=== PATIENT | male | born 1960 | race Caucasian/White ===

== ENCOUNTER 2018-08-23 18:21 | Emergency (ER) | payer SELFPAY ==
[2018-08-23 18:34] VITALS: BP 125/94
[2018-08-23] MEDS ORDERED: IBUPROFEN 600 MG TAB PO ONE (19:10)
--- NOTE | 2018-08-23 19:10 | EDPHY ---
H & P Time Seen by Provider: 08/23/18 18:37 HPI/ROS: Chief complaint: Left shoulder injury History of present illness: This is a 58-year-old male who presents to the emergency department for left shoulder injury. He was skiing earlier today when he fell directly onto his left shoulder. Since then he has had pain. He cannot move it without severe pain. He denies open wounds. He denies abnormal coolness or paresthesias in the arm. Further he denies trauma to the rest of the body including the head, neck, back, chest, abdomen, pelvis or other extremities. Smoking Status: Never smoked Physical Exam: General Appearance: Alert, nontoxic Eyes: PERRLA Respiratory: Lungs clear to auscultation bilaterally Cardiovascular: Regular rate and rhythm. Radial pulses 2+. Neurological: Alert and oriented x4. Decreased strength in the left arm secondary to pain otherwise strength is intact throughout, sensation is intact throughout the body. Skin: No open wounds to the left upper extremity. Musculoskeletal: The head is nontender without crepitus or bony deformity. The spine is nontender to palpation along its entire length without crepitus, bony deformity or step-off. Chest wall intact palpation. There is tenderness to the proximal left arm and left shoulder. The elbow, forearm, wrist and left hand are nontender, he can move the elbow wrist and digits well. The rest of the extremities are unremarkable. He is ambulating well. Constitutional: Initial Vital Signs Temperature (C) 36.9 C 08/23/18 18:31 Heart Rate 107 H 08/23/18 18:31 Respiratory Rate 16 08/23/18 18:31 Blood Pressure 125/94 H 08/23/18 18:31 O2 Sat (%) 95 08/23/18 18:31 O2 Delivery Mode Room Air Allergies/Adverse Reactions: Penicillins Allergy (Verified 08/23/18 18:30) Home Medications: Medication Instructions Recorded Asthma Steroid 08/23/18 Hydrocodone/APAP 5/325 [Clyde 1 tab PO Q6H #20 tab 08/23/18 5/325 (*)] Omeprazole 08/23/18 Ventolin Hfa Inhaler 08/23/18 MDM/Departure - MDM Imaging Results: Imaging Impressions Shoulder X-Ray 08/23/18 18:45 Impression: 1. Complex fracture proximal left humerus from the greater tuberosity to the proximal humeral shaft laterally with mild displacement. 2. Questionable fracture of the adjacent acromion.. Medications Given: Discontinued Medications Hydrocodone Bitart/Acetaminophen (Clyde 5/325mg Prepack#6) 1 btl TAKEHOME EDNOW ONE Stop: 08/23/18 19:33 Last Admin: 08/23/18 19:36 Dose: 1 btl Ibuprofen (Motrin) 600 mg PO EDNOW ONE Stop: 08/23/18 19:11 Last Admin: 08/23/18 19:16 Dose: 600 mg ED Course/Re-evaluation: Patient seen under the supervision of my secondary supervising physician Dr. Christiano Corrigan. Patient presents for a left shoulder injury. X-ray confirms a fracture. The left arm is neurovascularly intact. By history and physical exam I do not appreciate further trauma to the body. I have consulted with on-call orthopedics, physician human resources assistant manager Mg who has directly reviewed the x-rays. He is comfortable with patient being placed in a sling. Patient is returning to his home country of [place] on Saturday. Orthopedics feels he can wait for definitive care until he gets there. They do recommend he starts a full strength aspirin prophylactically for blood clot since he is traveling with a fracture. In addition patient is placed in a sling and is told he needs to stay immobilized in the sling at all times. Pain control is discussed. He is given his x-ray on CD. Return precautions are given. The patient voiced understanding and agreement with plan. Differential Diagnosis: Included but not limited to contusion, sprain or strain, bony fracture, joint dislocation - Depart Disposition: Home, Routine, Self-Care Clinical Impression: Humeral head fracture Qualifiers: Encounter type: initial encounter Fracture type: closed Laterality: left Qualified Code(s): S42.292A - Other displaced fracture of upper end of left humerus, initial encounter for closed fracture Condition: Good Instructions: Narcotic-Analgesic/Acetaminophen (By mouth), How to Use a Sling ( ED), Proximal Humerus Fracture (ED) Additional Instructions: Follow-up with orthopedics this week when you return home to [place] Ice the injury, 20 min on, 3 times daily for the next 3 days In regards to pain control see the following: Use ibuprofen 600 mg 3 times a day for the next 2-3 days for pain In addition, You have been prescribed Clyde for pain. Clyde contains Tylenol, do not take extra Tylenol/acetaminophen/Apap/paracetamol with it. It is sedating. Please start taking an adult aspirin, 325 mg daily until you get home and your doctor tells you to stop Use the sling at all times If symptoms worsen or new symptoms develop return to the emergency room for recheck Prescriptions: Hydrocodone/APAP 5/325 [Clyde 5/325 (*)] 1 tab PO Q6H #20 tab Referrals: NONE *PRIMARY CARE P,. [Primary Care Provider] - As per Instructions Matt Hayes MD [Medical Doctor] - As per Instructions
[2018-08-23] MEDS ORDERED: HYDROCOD/APAP 5/325 PREPACK#6 BTL TAKEHOME ONE (19:32)
== END 2018-08-23 19:42 | disposition home or self-care (01) ==
DX: S42.292A Other displaced fracture of upper end of left humerus, initial encounter for closed fracture (principal); Y93.23 Activity, snow (alpine) (downhill) skiing, snowboarding, sledding, tobogganing and snow tubing; V00.321A Fall from snow-skis, initial encounter; Y92.838 Other recreation area as the place of occurrence of the external cause